=== PATIENT | female | born 1990 | race Caucasian/White ===

== ENCOUNTER 2018-09-15 20:32 | Emergency (ER) | END 2018-09-16 00:56 | disposition home or self-care (01) ==

== ENCOUNTER 2019-04-24 20:14 | Emergency (ER) | payer OTHER ==
[~2019-04-24] VITALS: Ht 162.6 cm; Wt 69.8 kg
[~2019-04-24 20:14] MED LIST: FER325 PO; IBUP-1542 PO; NITR-58 PO
[2019-04-24 20:19] VITALS: Ht 162.6 cm; Wt 69.8 kg
[2019-04-24] MEDS ORDERED: PENICILLIN G BENZ 2.4 MIL UNIT SYG IM ONE (21:30)
[2019-04-24] MEDS ORDERED: LIDOCAINE 1% (MPF) 5 ML VIAL INJ ONE (21:30)
--- NOTE | 2019-04-24 22:17 | ERD ---
ER Documentation Chief Complaint Chief Complaint requesting to get CXR for work HPI 28-year-old female presents for chest x-ray required for her to stay in her outpatient drug rehab program. Patient denies any history of tuberculosis, cough, fevers, night sweats, fatigue, weight loss, hemoptysis. In addition patient states that she was tested for syphilis 2 weeks ago and was positive. Patient denies any rashes, numbness, tingling, altered mental status, headaches, photophobia, nuchal rigidity. States that she is not currently sexually active but has been in the past. Denies any dysuria, vaginal discharge. ROS All systems reviewed and are negative except as per history of present illness. Medications Home Meds Active Scripts Nitrofurantoin Monohyd Macrocr* (Macrobid*) 100 Mg Capsr, 100 MG PO BID for 5 Days, CAP Prov:JUSTYNA LEONARD PA-C 09/16/18 Ibuprofen* (Motrin*) 600 Mg Tab, 600 MG PO Q6, #30 TAB Prov:JUSTYNA LEONARD PA-C 09/16/18 Ferrous Sulfate* (Ferrous Sulfate*) 325 Mg Tabec, 325 MG PO BID, #60 TAB Prov:GORDON JACKSON NP 08/26/15 Allergies Allergies: Coded Allergies: No Known Allergy (Verified , 05/18/13) PMhx/Soc History of Surgery: Yes (c/section) Anesthesia Reaction: No Hx Neurological Disorder: No Hx Respiratory Disorders: No Hx Cardiac Disorders: No Hx Psychiatric Problems: No Hx Miscellaneous Medical Probl: Yes ( x1) Hx Alcohol Use: No Hx Substance Use: No Hx Tobacco Use: No Smoking Status: Never smoker FmHx Family History: No diabetes, No coronary disease, No other Physical Exam Vitals Vital Signs Date Temp Pulse Resp B/P (MAP) Pulse Ox O2 O2 Flow FiO2 Time Delivery Rate 04/24/19 98.4 79 20 158/84 100 Room Air 22:20 (108) 04/24/19 98.8 110 20 162/92 100 20:19 (115) Physical Exam Const: No acute distress Head: Atraumatic Eyes: Normal Conjunctiva ENT: Normal External Ears, Nose and Mouth. Neck: Full range of motion. No meningismus. Resp: Clear to auscultation bilaterally Cardio: Regular rate and rhythm, no murmurs Abd: Soft, non tender, non distended. Normal bowel sounds Skin: No petechiae or rashes Back: No midline or flank tenderness Ext: No cyanosis, or edema Neur: Awake and alert Psych: Normal Mood and Affect Results 24 hrs Current Medications Medications Dose Sig/Michael Start Time Status Last (Trade) Ordered Route PRN Stop Time Admin Dose Reason Admin Penicillin 2,400,000 ONCE ONCE 04/24/19 DC 04/24/19 G units IM 21:30 21:47 Benzathine 04/24/19 21:32 (Bicillin La) Lidocaine 5 ml ONCE ONCE 04/24/19 DC (Xylocaine INJ 21:30 1% (Mpf)) 04/24/19 21:32 Procedures/MDM DIAGNOSTIC IMAGING REPORT Patient: LILI HUERTA : 1990 Age: 28 Sex: F MR #: [id number] DOS: 04/24/192128 Ordering MD: KATIE BOLAÑOS Location: [facility] Room/Bed: PROCEDURE: XR Chest. CLINICAL INDICATION: Positive PPD. TECHNIQUE: Single frontal view. COMPARISON: 06/23/2016. FINDINGS: The lungs are clear. The heart size is normal. There is no pleural effusion. There is no pneumothorax. IMPRESSION: 1. No evidence of active tuberculosis. 2. Normal chest radiograph. 3. No change from 06/23/2016. RPTAT: QQ .Martin Argueta MD, MD Date Time Electronically viewed and signed by .Martin Argueta MD, MD on 04/24/2019 22:14 .R/ CC: KATIE BOLAÑOS [phone] MDM: Patient's chest x-ray is within normal limits. I have low suspicion for tubercolosis, pneumonia, pleural effusion, acute heart failure, foreign body aspiration, pulmonary embolism, pneumothorax, or other emergent etiology. Given patient's history of positive RPR patient was treated with 2,400,000 units of penicillin in the ER. Because patient is unsure of how long she has had syphilis patient was advised to to receive another 2 injections of penicillin over the next 2 weeks. Patient advised to refrain from sexual relations until condition is resolved. At this time, patient is stable for discharge and outpatient management. I have instructed the patient to follow-up with his/her primary care physician in 1-2 days. I have discussed with the patient the possibility of needing to see a specialist for further workup and imaging studies if symptoms persist. I have instructed the patient to promptly return to the ER for any new or worsening symptoms including but not limited to increased pain, fever, nausea, vomiting, weakness or LOC. The patient and/or family expressed understanding of and agreement with this plan. All questions were answered. Home care instructions were provided. DISCLAIMER: Inadvertent spelling and grammatical errors are likely due to EHR/dictation software use and do not reflect on the overall quality of patient care. Also, please note that the electronic time recorded on this note does not necessarily reflect the actual time of the patient encounter. Departure Diagnosis: Primary Impression: Encounter for laboratory test Additional Impression: Syphilis Condition: Stable Patient Instructions: Syphilis Referrals: [facility] YOU HAVE RECEIVED A MEDICAL SCREENING EXAM AND THE RESULTS INDICATE THAT YOU DO NOT HAVE A CONDITION THAT REQUIRES URGENT TREATMENT IN THE EMERGENCY DEPARTMENT. FURTHER EVALUATION AND TREATMENT OF YOUR CONDITION CAN WAIT UNTIL YOU ARE SEEN IN YOUR DOCTORS OFFICE WITHIN THE NEXT 1-2 DAYS. IT IS YOUR RESPONSIBILITY TO MAKE AN APPOINTMENT FOR FOLOW-UP CARE. IF YOU HAVE A PRIMARY DOCTOR --you should call your primary doctor and schedule an appointment IF YOU DO NOT HAVE A PRIMARY DOCTOR YOU CAN CALL OUR PHYSICIAN REFERRAL HOTLINE AT IF YOU CAN NOT AFFORD TO SEE A PHYSICIAN YOU CAN CHOSE FROM THE FOLLOWING [facility] [address] [facility] [address] [facility] [address] [facility] [address] [facility] [address] [facility] [facility]. [address] Additional Instructions: Because it is not known the duration of your syphilis is recommended that you get 2 more shots, one shot per week over the next 2 weeks. There is a list of community clinics that he can get these shots at. If you are unable to get to them then you can come back to us. Return to ER if symptoms worsen. KATIE BOLAÑOS Apr 24, 2019 22:17
[2019-04-24 22:20] VITALS: BP 158/84; PULSE 79; RESP 20
== END 2019-04-24 22:28 | disposition home or self-care (01) ==
LOC: FTE 20:14
DX: A53.9 Syphilis, unspecified (principal)
CPT/HCPCS: 71045; 96372; J0561; Z7502